=== PATIENT | female | born 1990 | race Caucasian/White ===

== ENCOUNTER 2023-06-13 13:02 | Emergency (ER) | payer BC, SELFPAY ==
[2023-06-13 13:17] VITALS: BP 144/97
[2023-06-13 13:38] LABS: % Basophils 0.8 % (0-2); % Eosinophils 3.5 % (0-6); % Immature Granulocytes 0.4 % (0-0.5); % Lymphocytes 22.5 % (20.5-51.1); % Monocytes 5.7 % (1.7-9.3); % Neutrophils 67.1 % (42.2-75.2); Absolute Basophils 0.1 10^3/uL (0-0.2); Absolute Eosinophils 0.4 10^3/uL (0-0.7); Absolute Immature Granulocytes 0.1 10^3/uL (0-0.05); Absolute Lymphocytes 2.8 10^3/uL (1.2-3.4); Absolute Monocytes 0.7 10^3/uL (0.1-0.6); Absolute Neutrophils 8.4 10^3/uL (1.4-6.5); Hemoglobin 13.8 g/dL (12.0-16.0); Mean Corp Hgb Conc. 34.5 g/dL (33.0-37.0); Mean Corpuscular Hgb 28.9 pg (27.0-31.0); Mean Corpuscular Volume 83.7 fL (81.0-99.0); Mean Platelet Volume 9.7 fL (7.4-10.4); Nucleated Red Blood Cells % 0 %; Platelet Count 283 10^3/uL (130-400); Red Blood Cell Count 4.78 10^6/uL (4.20-5.40); Red Cell Dist. Width 12.3 % (11.5-14.5); White Blood Cell Count 12.5 10^3/uL (4.8-10.8)
[2023-06-13 13:52] LABS: HCG, Serum Qualitative Screen Negative
[2023-06-13 13:53] LABS: ALT (SGPT) 25 U/L (0-35); AST (SGOT) 20 U/L (14-36); Albumin 4.7 g/dl (3.5-5.0); Alkaline Phosphatase 119 U/L (38-126); Blood Urea Nitrogen 16 mg/dl (7-17); Calcium 9.6 mg/dl (8.4-10.2); Carbon Dioxide 25 mmol/L (22-30); Chloride 102 mmol/L (98-107); Glucose 94 mg/dl (70-99); Sodium 140 mmol/L (135-145); Total Bilirubin 0.6 mg/dl (0.2-1.3); Total Protein 7.4 g/dl (6.3-8.2); eGFR > 60.00
[2023-06-13 14:02] LABS: Troponin I < 0.012 ng/ml
--- NOTE | 2023-06-13 16:14 | ED.GENMED ---
History of Present Illness
General
Chief Complaint: Chest Pain
Source: patient
Exam Limitations: none
Time Seen by Provider: 06/13/23 16:13
Nursing documentation reviewed up to this point in time: agreed with
Travel History
Have you had any contact with someone who has COVID-19?: No
Do you have any symptoms of coronavirus? Fever > 100 degrees, chills, cough, shortness of breath, sore throat, loss of taste or smell, muscle aches, or headache?: No
History of Present Illness
History of Present Illness:
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
got tingling down left arm into her 2, 3, 4th fingers. She reports her BP was 170/110 at the time. She also felt clammy but she admits she has been fasting since 6 p.m. last night which she does occasionally with her intermittent fasting. She felt
better after drinking Gatorade and eating fruit snacks while in the [place] and symptoms have completely resolved.
Denies SOB, N/V. Denies weakness, dizziness.
Past History
Past History
ED Past Medical History: Psychiatric (anxiety)
Social History
Tobacco: Non-smoker
Alcohol: None
Personal:
Living: with family
Employment: Employed
Review of Systems
Review of Systems
Allergies reviewed?: Yes
All Other Systems: ROS reviewed and negative except as documented in HPI and ROS
Constitutional: Denies fever or fatigue
Respiratory: Denies trouble breathing
Cardiac: Reports chest pain; Denies diaphoresis, palpitations or syncope
ABD/GI: Denies abdominal pain, nausea or vomiting
Musculoskeletal: Reports no symptoms
Skin: Reports no symptoms
Neurological: Reports other (tingling left arm and fingers, resolved); Denies headache
Phy Exam
Physical Exam
Physical Exam:
GENERAL: No acute distress. A&Ox3.
CONSTITUTIONAL: Afebrile.
EYES: Clear, conjunctivae normal
ENMT: moist mucus membranes, Pharynx nl
RESPIRATORY: Regular respirations, nonlabored, lungs clear.
CARDIOVASCULAR: Regular rate and rhythm, no murmurs, no rubs.
GI: Soft, nontender, normal BS
MUSCULOSKELETAL: Moves with ease. Well perfused.
SKIN: Warm, dry, pink
PSYCH: Normal mood and affect. Well kept, interactive and appropriate
NEUROLOGIC: Awake, alert and oriented. No focal neurological deficits
Scores
Heart Score for Chest Pain Patients
STEMI patient?: Not applicable
Course
Orders/Labs/Results
Orders:
Orders
06/13/23 13:04
ECG [Electrocardiogram (*1)] Urgent
Reason for Study: Chest Pain
EKG- Treatment ONCE
06/13/23 13:15
Test Result ONCE
06/13/23 13:27
Complete Blood Count/With Diff Urgent
Comprehensive Metabolic Panel Urgent
HCG, Serum Qualitative Screen Urgent
Troponin I Urgent
Abnormal Lab Results
06/13/23
13:27
WBC 12.5 H 10^3/uL
(4.8-10.8)
Abs Immat Gran (auto) 0.1 H 10^3/uL
(0-0.05)
Absolute Neuts (auto) 8.4 H 10^3/uL
(1.4-6.5)
Absolute Monos (auto) 0.7 H 10^3/uL
(0.1-0.6)
06/13/23 13:27
06/13/23 13:27
Vital Signs
Initial and Last Documented VS:
Initial Vital Signs
Temp Pulse Resp BP Pulse Ox
98.1 F 83 18 144/97 100
06/13/23 13:17 06/13/23 13:17 06/13/23 13:17 06/13/23 13:17 06/13/23 13:17
Last Documented Vital Signs
Temp Pulse Resp BP Pulse Ox
98.1 F 85 18 145/95 100
06/13/23 13:17 06/13/23 17:26 06/13/23 17:26 06/13/23 17:26 06/13/23 17:26
MDM/Problems Addressed
Differential Diagnosis Includes:
medication side effect, anxiety, hypoglycemia, ACS
MDM/Problems Addressed:
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
got tingling down left arm into her 2, 3, 4th fingers. She reports her BP was 170/110 at the time. She also felt clammy but she admits she has been fasting since 6 p.m. last night which she does occasionally with her intermittent fasting. She felt
better after drinking Gatorade and eating fruit snacks while in the [place] and symptoms have completely resolved.
Denies SOB, N/V. Denies weakness, dizziness.
EKG: NSR
06/13/2023 1615 PM
CBC no clinically significant abnormality
CMP normal
Troponin normal
hCG negative
Pt asymptomatic at this time.
No indication of cardiac etiology of symptoms
Pt just started Contrave 8-90 BID one week ago, symptoms may very well be a side effect of this. 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
*Critical Care Note
Total Time (30-74mins, 75-104mins- exclusive of procedures): Not Applicable
ED Attending Note
-
Portions of this chart may have been created with voice recognition software.� Occasional wrong word or��sound alike� substitutions may have occurred due to the inherent limitations of voice recognition software.
Discharge Plan
Departure
Patient Disposition: Home (Routine Discharge)
Date of Disposition: 06/13/23
Time of Disposition: 17:09
Patient with high blood pressure during this ER visit?: No
Condition: Good
Discharge Problem:
Atypical chest pain
Instructions: Chest Pain That Is Not Caused by the Heart (DC)
Referrals:
Steffi Gonzalez MD [Family Provider] - As needed
Activity Restrictions/Additional Instructions:
As we discussed, your workup here today shows nothing worrisome, specifically no indication of your heart causing your symptoms.
Follow up with your doctor in 2-3 days if your symptoms persist.
Interventions
Interventions:
*Risk Screen - Suicide Last Done: 06/13/23 17:26
*General Assessment Last Done: 06/13/23 17:26
*Neglect/Abuse Screening Last Done: 06/13/23 17:26
ED- Fall Risk Assessment Last Done: 06/13/23 17:26
*ED COVID-19 Vaccine History Last Done: 06/13/23 17:27
*Nursing Disposition Last Done: 06/13/23 17:26
ED- Cardiac Assessment Last Done: 06/13/23 17:25
Discharge Date and Time
Discharge Date/Time: 06/13/23 17:27
[2023-06-13 17:26] VITALS: BP 145/95
== END 2023-06-13 17:27 | disposition home or self-care (01) ==
LOC: EMR 13:02
PROVIDERS: Emergency Medicine; EMERGENCY PHYSICIAN Emergency Medicine; FAMILY PHYSICIAN Family Medicine
DX: R07.89 Other chest pain (principal); E28.2 Polycystic ovarian syndrome; F41.9 Anxiety disorder, unspecified
CPT/HCPCS: 99284; 80053; 84484; 84703; 85025; 93005

== ENCOUNTER → 2023-08-06 08:51 | Outpatient (REF) | payer BC, SELFPAY | LOC: WDC 08:51 | PROVIDERS: ATTENDING PHYSICIAN Family Medicine | DX: N63.10 Unspecified lump in the right breast, unspecified quadrant (principal); N63.13 Unspecified lump in the right breast, lower outer quadrant | CPT/HCPCS: 76642; 77062; 77066 ==

== ENCOUNTER 2024-02-22 14:40 | Observation (INO) | payer BC, SELFPAY ==
[2024-02-22] VITALS (12 sets, daily range): BP systolic 124–150; BP diastolic 75–92; BMI 40.3
[2024-02-22] MEDS: TORADOL 30 MG IV (10:13)
[2024-02-22] MEDS: ZOFRAN 4 MG IV ×2 (10:13→11:23)
[2024-02-22] MEDS: NSS 1000 IV ×2 (10:13→21:15)
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
[2024-02-22 10:52] LABS: % Basophils 0.6 % (0-2); % Eosinophils 1.5 % (0-6); % Immature Granulocytes 0.6 % (0-0.5); % Lymphocytes 16.1 % (20.5-51.1); % Monocytes 4.8 % (1.7-9.3); % Neutrophils 76.4 % (42.2-75.2); Absolute Basophils 0.1 10^3/uL (0-0.2); Absolute Eosinophils 0.3 10^3/uL (0-0.7); Absolute Immature Granulocytes 0.1 10^3/uL (0-0.05); Absolute Monocytes 0.9 10^3/uL (0.1-0.6); Absolute Neutrophils 14.4 10^3/uL (1.4-6.5); Hematocrit 41.1 % (37.0-47.0); Hemoglobin 14.1 g/dL (12.0-16.0); Mean Corp Hgb Conc. 34.3 g/dL (33.0-37.0); Mean Corpuscular Hgb 29.7 pg (27.0-31.0); Mean Corpuscular Volume 86.7 fL (81.0-99.0); Mean Platelet Volume 9.9 fL (7.4-10.4); Nucleated Red Blood Cells % 0 %; Platelet Count 344 10^3/uL (130-400); Red Blood Cell Count 4.74 10^6/uL (4.20-5.40); Red Cell Dist. Width 12.4 % (11.5-14.5); White Blood Cell Count 18.8 10^3/uL (4.8-10.8)
[2024-02-22 10:56] LABS: HCG, Serum Qualitative Screen Negative
[2024-02-22 10:59] LABS: ALT (SGPT) 19 U/L (0-35); AST (SGOT) 16 U/L (14-36); Albumin 4.1 g/dl (3.5-5.0); Alkaline Phosphatase 72 U/L (38-126); Blood Urea Nitrogen 13 mg/dl (7-17); Calcium 8.9 mg/dl (8.4-10.2); Carbon Dioxide 21 mmol/L (22-30); Chloride 107 mmol/L (98-107); Estimated Creatinine Clearance > 125 ml/min; Glucose 119 mg/dl (70-99); Potassium 4.8 mmol/L (3.5-5.1); Sodium 140 mmol/L (135-145); Total Bilirubin 0.5 mg/dl (0.2-1.3); Total Protein 6.8 g/dl (6.3-8.2); eGFR > 60.00
[2024-02-22 11:19] LABS: Urine Albumin 1+ (Neg - Trace); Urine Bilirubin Negative (Negative); Urine Character Slightly Cloudy (Clear); Urine Color Yellow; Urine Glucose Negative (Negative); Urine Ketone Trace (Negative); Urine Leukocyte Trace (Negative); Urine Nitrite Negative (Negative); Urine Occult Blood Negative (Negative); Urine Urobilinogen Negative (Neg - 1+)
[2024-02-22] MEDS: OFIRMEV 100 IV (11:23)
[2024-02-22 11:58] LABS: Urine Amorphous Seen; Urine Squamous Cell 16-20 /LPF (Few)
[2024-02-22 12:00] LABS: Urine Bacteria Moderate (Negative)
[2024-02-22] MEDS: ROCEPHIN 1000 MG IV ×2 (13:28→18:57)
[2024-02-22] MEDS: BENADRYL 25 MG IV (13:28)
[2024-02-22] MEDS: REGLAN 10 MG IV (13:29)
--- NOTE | 2024-02-22 14:03 | HPS.HSE ---
Family Physician
-
Family Physician: Steffi Gonzalez MD
Chief Complaint
-
right flank pain
History of Present Illness
33-year-old female past medical history of anxiety, kidney stones, degenerative disease with back neurostimulator, hypothyroidism, PCOS, presenting with acute right flank pain radiating to the front at 730 this morning. She has vomiting. Denies
fevers or chills. Denies burning with urination or blood in urine.
She has had multiple stones in the past requiring urological intervention most recently in September of last year.
She denies smoking alcohol drugs.
Medical History
Past Medical History
Past Medical History: Reports Other (anxiety, kidney stones, degenerative disease with back neurostimulator, hypothyroidism, PCOS,)
Past Surgical History: Reports None
Social History
Tobacco: Non-smoker
Alcohol: None
Drug: None
Family History
Family History: Not pertinent
Allergies / Home Medications
Allergies reflects when Allergies were last updated in [facility].
Home Medications with original date entered in [facility]
Allergy/Medication List:
Allergies
Allergy/AdvReac Type Severity Reaction Status Date / Time
iodine Allergy skin issue Verified 02/22/24 09:38
Home Medications
cholecalciferol (vitamin D3) 125 mcg (5,000 unit) tablet (Vitamin D3) 250 mcg PO DAILY 02/22/24
levonorgestrel 0.15 mg-ethinyl estradiol 0.03 mg tablet (Altavera (28)) 1 tab PO HS 02/22/24
levothyroxine 125 mcg tablet (Synthroid) 125 mcg PO DAILY 02/22/24
metformin 500 mg tablet,extended release 24 hr 500 mg PO DAILY 02/22/24
spironolactone 50 mg tablet 50 mg PO DAILY 02/22/24
Review of Systems
-
History Source: Patient
A 12 point ROS was completed and negative except as noted: Yes
Constitutional: Reports No Symptoms
EENT: Reports No Symptoms
Respiratory: Reports No Symptoms
Cardiac: Reports No Symptoms
Abdomen/GI: Reports No Symptoms
: Reports See HPI
Musculoskeletal: Reports No Symptoms
Skin: Reports No Symptoms
Neurological: Reports No Symptoms
Endocrine: Reports No Symptoms
Hematologic/Lymphatic: Reports No Symptoms
Psych: Reports No Symptoms
Physical Exam
Vital Signs
Vital Signs
Temp Pulse Resp BP Pulse Ox
97.8 F 64 16 137/81 100
02/22/24 09:36 02/22/24 12:34 02/22/24 12:34 02/22/24 12:34 02/22/24 12:34
Physical Exam
General: Well Developed, Well Nourished and No Apparent Distress
HEENT: NormoCephalic, Moist mucous membranes and Atraumatic
Respiratory: Clear
Cardiac: S1/S2 and Regular Rhythm; No Murmur or Rub
GI: Soft, Non Tender, Non Distended and Normal Bowel Sounds; No Organomegaly
Rectal: Deferred by Provider
Genito-urinary: Other (right flank tenderness )
Musculoskeletal: No Clubbing, No Cyanosis and No Edema
Skin: No Rash
Neuro: Nonfocal/grossly intact
Laboratory Results
-
02/22/24 10:17
02/22/24 10:38
Laboratory Results
Total Bilirubin 0.5 mg/dl (0.2-1.3) 02/22/24 10:38
AST 16 U/L (14-36) 02/22/24 10:38
ALT 19 U/L (0-35) 02/22/24 10:38
Alkaline Phosphatase 72 U/L (38-126) 02/22/24 10:38
Data Reviewed
-
Lab Data: Labs Reviewed by me
Old Records: Reviewed
Impression/Plan
-
IMPRESSION:
PLAN:
# Right ureterovesicular junction stone with moderate right hydroureteronephrosis
# History of nephrolithiasis
-UA shows 11-15 WBC
-6 x 5 x 4 mm
-IV fluids
-Ceftriaxone
-Zofran, ketorolac
-N.p.o.
-Urology consulted
Anxiety
Degenerative disease with back neurostimulator
Hypothyroidism
-Continue levothyroxine
PCOS
-Hold metformin
-Continue spironolactone
-Continue control
Full code
DVT prophylaxis SCDs
N.p.o.
--- NOTE | 2024-02-22 14:26 | CONS.URO ---
Consultation
-
Date/Time Consultation Requested: 02/22/24
Date/Time Consultation Performed: 02/22/24
Requesting Provider: ED
Performing Provider: Duy
Reason for Consultation: obstructing right UVJ stone, urosepsis
Medical History
History of Present Illness
33F w/ presents w/ acute right flank pain radiating to RLQ abdomen since 729.
+nausea w/ intractable vomiting.
Denies hematuria or dysuria.
Ppior h/o kidney stones (s/p URS/laser lithotripsy/stone extraction/stent placement) by prior urologist @[facility].
Last ureteroscopic procedure @[facility] in 09/2022.
Past Medical History
Past Medical History: Hypothyroidism and Other (anxiety, nephrolithiasis, DDD w/ neurostimulator, PCOS)
Past Surgical History: Urological (URS/laser lithotripsy/stent placement)
Social History
Tobacco: Non-smoker
Alcohol: None
Drug: None
Employment: Employed
Family History
Family History: Reviewed & Not Pertinent
Allergies/Home Medications
Allergies
Allergy/AdvReac Type Severity Reaction Status Date / Time
iodine Allergy skin issue Verified 02/22/24 09:38
Home Medications
�Medication �Instructions �Recorded �Confirmed �Type
cholecalciferol (vitamin D3) 125 250 mcg PO DAILY 02/22/24 02/22/24 History
mcg (5,000 unit) tablet (Vitamin
D3)
levonorgestrel 0.15 mg-ethinyl 1 tab PO HS 02/22/24 02/22/24 History
estradiol 0.03 mg tablet (Altavera
(28))
levothyroxine 125 mcg tablet 125 mcg PO DAILY 02/22/24 02/22/24 History
(Synthroid)
metformin 500 mg tablet,extended 500 mg PO DAILY 02/22/24 02/22/24 History
release 24 hr
spironolactone 50 mg tablet 50 mg PO DAILY 02/22/24 02/22/24 History
Review of Systems
-
History Source: Patient
A 12 point Review of Systems was completed except as noted: Yes
Physical Exam
Vital Signs
Vital Signs
Temp Pulse Resp BP Pulse Ox
97.8 F 64 16 137/81 100
02/22/24 09:36 02/22/24 12:34 02/22/24 12:34 02/22/24 12:34 02/22/24 12:34
Lab / Testing Results
Laboratory Results
02/22/24 10:17
02/22/24 10:38
Physical Exam
General: Well Developed, Well Nourished and Poor Appetite
HEENT: Normocephalic and Anicteric
Respiratory: Non Labored Respirations
Cardiac: Regular Rhythm
Breast: Deferred by me
GI: Soft, Non Tender and Non Distended
Rectal: Deferred by Provider
Musculoskeletal: No Edema
Skin: Warm and Dry
Neuro: AO x 3, No Motor Deficits and Nonfocal/Grossly Intact
Hematologic/Lymphatic: No Lymphadenopathy
Psych: Calm and Intact Judgement
Assessment / Plan
-
Urosepsis
Intractable nausea/vomiting
Obstructing right UVJ stone w/ hydronephrosis
WBC >18
Cr WNL
UA +WBCs/RBCs/bacteria
CT imaging reviewed - 6 mm right UVJ stone w/ moderate right hydroureteronephrosis, non-obstructing bilateral renal stones.
- Admitted to Hospitalist
- IV Ceftriaxone
- Maintain NPO
- To OR this afternoon for cystoscopy + right stent placement
- Surgical consent signed on chart (and scanned in)
D/w ED physician.
D/w patient.
Data Reviewed
-
CT Scan: Image personally visualized and interpreted, Report Reviewed by Me, Discussed with Physician and Discussed with Patient
Lab Data: Labs Reviewed, Discussed with Physician and Discussed with Patient
Old Records: Reviewed
--- NOTE | 2024-02-22 14:34 | W.SUR.PREOP ---
Pre-Operative Surgical Note
-
I have examined this patient prior to the performance of the scheduled procedure.
The patient's condition is unchanged from the time of the current History and
Physical and the patient is able to undergo the scheduled procedure.
Reviewed potential risks and complications of cystoscopy and stent placement including but not limited to bleeding, ureteral/bladder injury, incontinence, need for additional procedures/surgeries.
Surgical consent signed on chart
Maintain NPO
To OR for cystoscopy + right ureteral stent placement this afternoon
Continue IV antibiotics
--- NOTE | 2024-02-22 18:41 | W.PN.UPDATE ---
Update Note
Progress Note Update
spouse's contact # 'is not in service'
[2024-02-22 18:44] LABS: Glucose - Point of Care 95 mg/dl (70-99)
[2024-02-22] MEDS: STERILE WATER FOR INJECTION 10 ML IV (18:57)
--- NOTE | 2024-02-23 01:51 | PTCARENOTE ---
Pt 33 y/o F post-op Cystoscopy with R stent & Laser Lithotripsy & stone extraction arrived from PACU at 20:20. PMH Thyroid disorder, anxiety, kidney stone removal, foinger surgery (trigger finger releas) C sectiom & sebaceuos cyst removal. Pt AOx3,
bed in a low position & call light in reach. Pt reports no pain.
[2024-02-23] MEDS: NSS 1000 IV (05:05)
[2024-02-23] MEDS: SYNTHROID 125 MCG PO (05:07)
[2024-02-23 06:03] LABS: % Basophils 0.1 % (0-2); % Immature Granulocytes 0.4 % (0-0.5); % Lymphocytes 10.6 % (20.5-51.1); % Monocytes 4.2 % (1.7-9.3); % Neutrophils 84.7 % (42.2-75.2); Absolute Immature Granulocytes 0.1 10^3/uL (0-0.05); Absolute Lymphocytes 1.6 10^3/uL (1.2-3.4); Absolute Monocytes 0.6 10^3/uL (0.1-0.6); Absolute Neutrophils 12.4 10^3/uL (1.4-6.5); Hematocrit 36.3 % (37.0-47.0); Hemoglobin 12.3 g/dL (12.0-16.0); Mean Corp Hgb Conc. 33.9 g/dL (33.0-37.0); Mean Corpuscular Hgb 29.4 pg (27.0-31.0); Mean Corpuscular Volume 86.8 fL (81.0-99.0); Mean Platelet Volume 9.6 fL (7.4-10.4); Nucleated Red Blood Cells % 0 %; Platelet Count 285 10^3/uL (130-400); Red Blood Cell Count 4.18 10^6/uL (4.20-5.40); Red Cell Dist. Width 12.3 % (11.5-14.5); White Blood Cell Count 14.7 10^3/uL (4.8-10.8)
[2024-02-23 06:26] LABS: ALT (SGPT) 18 U/L (0-35); AST (SGOT) 16 U/L (14-36); Albumin 3.7 g/dl (3.5-5.0); Alkaline Phosphatase 57 U/L (38-126); Blood Urea Nitrogen 15 mg/dl (7-17); Calcium 8.6 mg/dl (8.4-10.2); Carbon Dioxide 18 mmol/L (22-30); Chloride 108 mmol/L (98-107); Estimated Creatinine Clearance > 125 ml/min; Glucose 137 mg/dl (70-99); Potassium 4.3 mmol/L (3.5-5.1); Sodium 142 mmol/L (135-145); Total Bilirubin 0.5 mg/dl (0.2-1.3); Total Protein 6.3 g/dl (6.3-8.2); eGFR > 60.00
[2024-02-23 07:05] VITALS: BP 124/74
--- NOTE | 2024-02-23 07:50 | W.PN.HOSP.TC ---
Today's Communication/Plan
-
See PN
Assessment / Plan
Assessment / Plan
33yo F with PMHx of hypothyroidism, vit D, neurostimulator implantation deficiency and recurrent nephrolithiasis came with R flank pain, found UVJ stone, underwent lythotrypsy and extraction with JJ stent placement. Found evidence of evolving
infection during procedure. Managed for UTI pending Ucx
A/P:
#UTI with R obstructive nephropathy
s/p lithotripsy and JJ stent
Cefftriaxone pending Ucx
Urology to follow
#Fatty liver disease
#Morbid obesity
BMI 40.3
Advise to decrease calorie intake, exersizing
low fat diet
#Hypothyroidism
cont synthroid
#Small non-incarcerated umbilical hernia
monitor
#Back pain, chronic with neurostimulator
monitor
DVT ppx on lovenox
Full code
I have spent at least 55min reviewing chart, test results, communication to the consultants and direct patient care
Anticipated Discharge: 24 - 48 hours
Subjective/Interval History
-
Date of Service: February 23, 2024
Objective Data
-
Labs:
Laboratory Results
02/23/24
05:46
WBC 14.7 H
Hgb 12.3
Hct 36.3 L
Plt Count 285
Sodium 142
Potassium 4.3
Chloride 108 H
Carbon Dioxide 18 L
BUN 15
Creatinine 0.8
Glucose 137 H
Calcium 8.6
Total Bilirubin 0.5
AST 16
ALT 18
Alkaline Phosphatase 57
Vital Signs:
Vital Signs
Temp Pulse Resp BP Pulse Ox
97.7 F 96 18 139/81 98
02/22/24 23:00 02/22/24 23:00 02/22/24 23:00 02/22/24 23:00 02/22/24 23:00
I&O
02/22/24 02/23/24 02/24/24
06:59 06:59 06:59
Intake Total 1879
Balance 1879
Review of Systems
-
History Source: Patient
All other systems: Reviewed and negative
Physical Exam
-
General: No Apparent Distress
HEENT: Normocephalic
Respiratory: Clear to Auscultation
GI: Soft, Nontender and Nondistended
Genito-urinary: No Costovertebral Tender
Neuro: Awake, Alert, Oriented and AO x 3
Psych: Calm
[2024-02-23] MEDS: ALDACTONE 50 MG PO (08:12)
[2024-02-23] MEDS: VITAMIN D3 (cholecalciferol) 250 MCG PO (08:13)
--- NOTE | 2024-02-23 11:28 | W.PN.URO.CBU ---
Today's Communication / Plan
-
Rec:
tx emprically with 10 days of oral abx
pt to f/u as outpatient for removal of stent and metabolic stone evalutation
Assessment / Plan
-
Right ureteral stone, s/p lithotripsy, stone extraction and stenting; systemic UTI -- negative urine cx is not uncommon as specimen was from bladder and infected urine was above obstructing stone
Diagnosis
-
Date of Service: February 23, 2024
-
Patient Diagnosis: Right ureteral stone, s/p lithotripsy, stone extraction and stenting; systemic UTI
Post Op Day: 1
Subjective
-
'I feel much better'
Objective
-
Vital Signs
Temp Pulse Resp BP Pulse Ox
97.8 F 88 20 124/74 98
02/23/24 07:05 02/23/24 07:05 02/23/24 07:05 02/23/24 07:05 02/23/24 07:05
Intake and Output
02/22/24 02/23/24 02/24/24
06:59 06:59 06:59
Intake Total 1879
Balance 1879
Intake:
Oral fluids 480 / 480
IV fluids (Total) 1400 / 1400
Normosal 300 / 300
Other:
Number of approximated MODERATE 1
amounts of urine
Number of approximated LARGE 2
amounts of urine
Laboratory Results
02/23/24 05:46
02/23/24 05:46
Physical Exam
-
General - well developed, well nourished, no acute distress
Care Review
Data Reviewed
Discussed with: Other (with pt)
[2024-02-23 11:40] LABS: Urine Albumin 2+ (Neg - Trace); Urine Bilirubin 1+ (Negative); Urine Character Very Cloudy (Clear); Urine Color Brown; Urine Glucose Negative (Negative); Urine Ketone Trace (Negative); Urine Leukocyte 1+ (Negative); Urine Nitrite Positive (Negative); Urine Occult Blood 4+ (Negative); Urine Specific Gravity 1.025 (<1.030); Urine Urobilinogen 1+ (Neg - 1+)
[2024-02-23 12:03] LABS: Urine Red Blood Cell 50-60 /HPF (0-2)
[2024-02-23 12:04] LABS: Urine Bacteria Moderate (Negative); Urine White Cell 16-20 /HPF (0-5)
--- NOTE | 2024-02-23 12:09 | CM ---
CM following re: d/c planning.
CM met with pt at bedside to complete IA.
She states she resides with spouse and sister.
She is independent with mobility and ADLs, no DME or VN in the home.
PCP is Dr. Gonzalez and pharmacy is [facility].
She has no d/c needs.
CM provided OBS letter, copy given and discussed.
[2024-02-23 15:17] VITALS: BP 113/73
[2024-02-23] MEDS: STERILE WATER FOR INJECTION 10 ML IV (17:04)
[2024-02-23] MEDS: ROCEPHIN 1000 MG IV (17:04)
[2024-02-23 22:40] VITALS: BP 127/79
[2024-02-24 06:01] LABS: % Basophils 0.6 % (0-2); % Eosinophils 1.1 % (0-6); % Immature Granulocytes 0.5 % (0-0.5); % Monocytes 6.9 % (1.7-9.3); % Neutrophils 54.9 % (42.2-75.2); Absolute Basophils 0.1 10^3/uL (0-0.2); Absolute Eosinophils 0.1 10^3/uL (0-0.7); Absolute Immature Granulocytes 0.1 10^3/uL (0-0.05); Absolute Monocytes 0.8 10^3/uL (0.1-0.6); Absolute Neutrophils 6.1 10^3/uL (1.4-6.5); Hematocrit 33.1 % (37.0-47.0); Hemoglobin 10.8 g/dL (12.0-16.0); Mean Corp Hgb Conc. 32.6 g/dL (33.0-37.0); Mean Corpuscular Hgb 29.2 pg (27.0-31.0); Mean Corpuscular Volume 89.5 fL (81.0-99.0); Mean Platelet Volume 9.8 fL (7.4-10.4); Nucleated Red Blood Cells % 0 %; Platelet Count 203 10^3/uL (130-400); Red Cell Dist. Width 12.8 % (11.5-14.5); White Blood Cell Count 11.1 10^3/uL (4.8-10.8)
[2024-02-24] MEDS: SYNTHROID 125 MCG PO (06:27)
[2024-02-24 07:58] VITALS: BP 126/83
[2024-02-24] MEDS: ALDACTONE 50 MG PO (08:11)
[2024-02-24] MEDS: VITAMIN D3 (cholecalciferol) 250 MCG PO (08:11)
[2024-02-24] MEDS: TORADOL 10 MG IV (08:21)
--- NOTE | 2024-02-24 08:45 | W.PN.HOSP.TC ---
Today's Communication/Plan
-
pending repeated Ucx
cont ceftriaxone
possible D/C today - see note
Assessment / Plan
Assessment / Plan
33yo F with PMHx of hypothyroidism, vit D, neurostimulator implantation deficiency and recurrent nephrolithiasis came with R flank pain, found UVJ stone, underwent lithotripsy and extraction with JJ stent placement. Found evidence of evolving
infection during procedure. Managed for UTI pending Ucx. If remain neg - reasonable to d/c with empiric Levaquin due to concern for developing pyelo from Urology. Patient is aware, that if d/c - the treatment will be empiric and she might need
change in her Abx
A/P:
#UTI with R obstructive nephropathy
s/p lithotripsy and JJ stent
Ceftriaxone while inpatient
Initial Ucx - contamination. Repeated on 02/23/24
If remains neg - might be a candidate for empiric Levaquin to complete 7 days course
Urology to follow
#Fatty liver disease
#Morbid obesity
BMI 40.3
Advise to decrease calorie intake exercise
low fat diet
#Hypothyroidism
cont synthroid
#Small non-incarcerated umbilical hernia
monitor
#Back pain, chronic with neurostimulator
monitor
DVT ppx on lovenox
Full code
I have spent at least 55min reviewing chart, test results, communication to the consultants and direct patient care
Anticipated Discharge: Within 24 hours
Subjective/Interval History
-
Date of Service: February 24, 2024
Objective Data
-
Labs:
Laboratory Results
02/24/24
04:12
WBC 11.1 H
Hgb 10.8 L
Hct 33.1 L
Plt Count 203 D
Vital Signs:
Vital Signs
Temp Pulse Resp BP Pulse Ox
98.2 F 80 18 126/83 96
02/24/24 07:58 02/24/24 08:11 02/24/24 07:58 02/24/24 08:11 02/24/24 07:58
I&O
02/23/24 02/24/24 02/25/24
06:59 06:59 06:59
Intake Total 1879 / 2399
Balance 1879
Review of Systems
-
History Source: Patient
All other systems: Reviewed and negative
Physical Exam
-
General: No Apparent Distress
HEENT: Normocephalic, Atraumatic and Moist Mucous Membranes
Genito-urinary: No Costovertebral Tender
Neuro: Awake, Alert, Oriented and AO x 3
Psych: Calm
--- NOTE | 2024-02-24 14:21 | W.DCSUMMARY ---
Addendum entered and electronically signed by Ash Story MD 02/24/24 16:00:
since no CVA tenderness, no fever and improved WBC count - meets criteria for outpatient treatment
Original Note:
Discharge Summary
Discharge Data
Date of Admission: 02/22/24
Date of Discharge: 02/24/24
-
Pending Results: No
Hospital Course
33yo F with PMHx of hypothyroidism, vit D, neurostimulator implantation deficiency and recurrent nephrolithiasis came with R flank pain, found UVJ stone, underwent lithotripsy and extraction with JJ stent placement. Found evidence of evolving
infection during procedure. Managed for UTI pending Ucx. And since Ucx remain remain neg - reasonable to d/c with empiric Levaquin due to concern for developing pyelo from Urology. Patient is aware, that if d/c - the treatment will be empiric and
she might need change in her Abx
I have spent at least 55min reviewing chart, test results, communication to the consultants and direct patient care
Patient was managed for:
#UTI with R obstructive nephropathy
#Fatty liver disease
#Morbid obesity
BMI 40.3
#Hypothyroidism
#Small non-incarcerated umbilical hernia
#Back pain, chronic with neurostimulator
Discharge Plan
-
Patient Disposition: Home (Routine Discharge)
Discharge Diagnosis/Procedures: Right Ureteral Stone, s/p lithotripsy and stenting; systemic UTI
Diet: Diabetic, Carb Controlled
Activity: As tolerated
Driving Restrictions: As prior to admission
Referrals:
Steffi Gonzalez MD [Family Provider] -
Chano Mann MD [Active] - (call Sunday to schedule 'stent removal' on Sunday before )
Prescriptions:
New
levofloxacin 750 mg tablet
750 mg PO DAILY Qty: 7 0RF
Continued
levonorgestrel-ethinyl estrad [Altavera (28)] 0.15-0.03 mg Tablet
1 tab PO HS
levothyroxine [Synthroid] 125 mcg Tablet
125 mcg PO DAILY@06
metformin 500 mg Tablet Extended Release 24 Hr
500 mg PO DAILY
spironolactone 50 mg Tablet
50 mg PO DAILY
cholecalciferol (vitamin D3) [Vitamin D3] 125 mcg (5,000 unit) Tablet
250 mcg PO DAILY
Discharge Orders:
Discharge Patient (As Directed); Ordered 02/24/24
Ordered By: Ash Story
Discharge Date and Time
Print Language: BURKIN[place]
[2024-02-24 15:44] VITALS: BP 132/96
== END 2024-02-24 15:55 | disposition home or self-care (01) ==
LOC: 2 SOUTH 14:40
PROVIDERS: Specialist; ADMITTING PHYSICIAN Hospitalist; ATTENDING PHYSICIAN Internal Medicine; EMERGENCY PHYSICIAN Emergency Medicine; FAMILY PHYSICIAN Family Medicine; OTHER PHYSICIAN Surgery
DX: N13.6 Pyonephrosis (principal); R10.9 Unspecified abdominal pain; F41.9 Anxiety disorder, unspecified; E03.9 Hypothyroidism, unspecified; K42.9 Umbilical hernia without obstruction or gangrene; G89.29 Other chronic pain; K76.0 Fatty (change of) liver, not elsewhere classified; E66.01 Morbid (severe) obesity due to excess calories; N13.8 Other obstructive and reflux uropathy; E28.2 Polycystic ovarian syndrome; F11.11 Opioid abuse, in remission; Z91.041 Radiographic dye allergy status; Z79.84 Long term (current) use of oral hypoglycemic drugs; Z79.890 Hormone replacement therapy; Z79.3 Long term (current) use of hormonal contraceptives; Z87.442 Personal history of urinary calculi; Z96.82 Presence of neurostimulator; Z68.41 Body mass index [BMI] 40.0-44.9, adult
CPT/HCPCS: 52356; 74018; 74176; 76000; 80053; 81003; 81015; 82365; 82962; 84703; 85025; 87086; 87491; 87591; 96361; 96374; 96375; 96376; 99285; C2617; G0378